=== PATIENT | male | born 1960 | race Caucasian/White ===

== ENCOUNTER 2019-09-16 00:48 | Emergency (ER) | payer OTHER ==
[2019-09-16] MEDS ORDERED: ASPIRIN 81 MG CHEWABLE TABLETS PO ONE (01:01)
--- NOTE | 2019-09-16 01:05 | PDOC ---
History of Present Illness - General Chief Complaint: Chest Pain Stated Complaint: CHEST PAIN Time Seen by Provider: 09/16/19 00:57 History Source: Patient Exam Limitations: No Limitations - History of Present Illness Initial Comments: 09/16/19 01:02 58 year Old male with history significant for hypertension, coronary artery disease, diabetes, end-stage renal disease although he will schedule this. Patient had his dialysis today. Approximately 11:00 tonight patient developed some substernal chest discomfort that was not associated with any nausea vomiting, diaphoresis or shortness of breath. Patient said he takes an aspirin a day did take his aspirin today and the pain persisted so he comes in for evaluation. Allergies: as per nursing notes Past Medical History: As per HPI Social history: Lives with family. No smoking. No alcohol. No illicit drugs. Surgical history: None General: No fevers or chills, no weakness, no weight loss HEENT: No change in vision. No sore throat,. No ear pain CardioVascular: + chest discomfort. No shortness of breath Respiratory:No cough, or wheezing. Gastrointestinal: no nausea, vomiting, diarrhea or constipation, No rectal bleeding Genitourinary: No dysuria, hematuria, or frequency Musculoskeletal: No joint or muscle pain or swelling Neurologic: No headache, vertigo, dizziness or loss of consciousness Psychiatric: nor depression Skin: No rashes or easy bruising Endocrine: no increased thirst or abnormal weight change Allergic: no skin or latex allergy All other systems reviewed and normal Exam: General: Well-nourished well-developed individual, no acute distress HEENT: Throat: Normal, tonsils normal, no erythema or exudate Neck: Supple, no meningeal signs, no lymphadenopathy Eyes::Pupils equal reactive and round, extraocular motion intact Chest: Nontender to palpation Cardiac: S1-S2 normal, regular rate and rhythm, no murmurs rubs or gallops Respiratory: Lungs clear to auscultation bilateral Abdomen: Soft, nondistended, normal bowel sounds, there is no tenderness on palpation diffusely Extremities: Warm, dry, no cyanosis, clubbing, or edema Skin: No rashes Neuro: Alert and oriented x3, CN II - XII intact, nonfocal exam with normal strength, normal sensation, normal reflexes, normal gait, Psych: Normal mood and affect Assessment and plan: This is a 58-year-old male with significant medical history and chest discomfort. Patient will need to be admitted to rule out cardiac causes given his multiple risk factors. Work-up initiated including CBC , comp, UA, chest x-ray, EKG. 09/16/19 03:07 Patient's work-up is complete his chest x-ray shows no acute pathology EKG shows a paced ventricular rhythm with a biventricular pacemaker Troponin was 0.35 Patient will be admitted for serial troponins. 09/16/19 06:57 Filemon was called at o3:00 and returned the call but wasn't retail seasonal specialist. Shoshana called at 03:30 and never returned the call. Natalia came on at 07:00 and was called 09/16/19 21:54 Past History - Past Medical History Allergies/Adverse Reactions: Allergies Allergy/AdvReac Type Severity Reaction Status Date / Time Penicillins Allergy Verified 09/16/19 00:51 Home Medications: Ambulatory Orders Aspirin [ASA -] 81 mg PO DAILY 09/16/19 Carvedilol 12.5 mg PO BID 09/16/19 Folic Acid 800 mcg PO DAILY 09/16/19 Simvastatin 40 mg PO DAILY 09/16/19 Warfarin Na [Coumadin Protocol] 1 each PO DAILY 09/16/19 *Physical Exam - Vital Signs Last Vital Signs Temp Pulse Resp BP Pulse Ox 98.2 F 84 18 150/82 97 09/16/19 06:44 09/16/19 10:00 09/16/19 10:00 09/16/19 10:00 09/16/19 10:00 ED Treatment Course - LABORATORY CBC & Chemistry Diagram: 09/16/19 01:30 09/16/19 01:30 - ADDITIONAL ORDERS Additional order review: 09/16/19 01:30 RBC 3.87 L MCV 100.4 H MCHC 34.4 RDW 14.7 MPV 8.4 Neutrophils % 64.2 Lymphocytes % 18.9 Monocytes % 10.6 H Eosinophils % 5.5 H Basophils % 0.8 - RADIOLOGY Radiology Studies Ordered: Category Date Time Status CHEST X-RAY PORTABLE* [RAD] Stat Radiology 09/16/19 00:59 Completed - Medications Given in the ED: ED Medications Discontinued Medications Generic Name Dose Route Start Last Admin Trade Name Freq PRN Reason Stop Dose Admin Aspirin 325 mg 09/16/19 01:01 09/16/19 01:08 Asa - PO 09/16/19 01:02 325 mg ONCE ONE Administration Heparin Sodium (Porcine) 4,000 unit 09/16/19 08:31 09/16/19 08:53 Heparin - IVPUSH 09/16/19 08:32 4,000 unit ONCE ONE Administration Heparin Sodium/Dextrose 25,000 units in 500 mls @ 16 mls/hr 09/16/19 08:45 08:53 Heparin Infusion - IVPB 800 units/hr TITR JAZMYNE 16 mls/hr Administration Protocol 800 UNITS/HR Discharge - Discharge Information Problems reviewed: Yes Clinical Impression/Diagnosis: Chest discomfort Condition: Fair Disposition: TRANSFER ACUTE CARE/OTHER HOSP - Admission Yes - Follow up/Referral - Patient Discharge Instructions - Post Discharge Activity
[2019-09-16 01:08] VITALS: BMI 30.1
[2019-09-16] MEDS ORDERED: ASPIRIN 325 MG TABLET ONE (01:09)
[2019-09-16 02:01] LABS: BASO % 0.8 % (0-2.0); EOS % 5.5 % (0-4.5); HEMATOCRIT 38.8 % (35.4-49); HEMOGLOBIN 13.4 GM/dL (11.7-16.9); LYMPH % 18.9 % (8-40); MCH 34.5 pg (25.7-33.7); MCHC 34.4 g/dl (32.0-35.9); MEAN CELL VOLUME 100.4 fl (80-96); MEAN PLT VOLUME 8.4 fl (7.5-11.1); MONO % 10.6 % (3.8-10.2); NEUT % 64.2 % (42.8-82.8); PLATELET COUNT 167 K/MM3 (134-434); RBC 3.87 M/mm3 (4.00-5.60); RDW 14.7 % (11.9-15.9); WHITE BLOOD COUNT 10.4 K/mm3 (4.0-10.0)
[2019-09-16 02:29] LABS: ALBUMIN 3.6 g/dl (3.4-5.0); BILIRUBIN,TOTAL 0.3 mg/dL (0.2-1); BLOOD UREA NITROGEN 34.6 mg/dL (7-18); CREATININE 6.5 mg/dL (0.55-1.3); POTASSIUM 3.6 mmol/L (3.5-5.1); TOT PROT 7.7 g/dl (6.4-8.2)
[2019-09-16 06:50] VITALS: TEMP 98.2
[2019-09-16] MEDS ORDERED: HEPARIN NA (PORCINE) 5,000 UNITS/ML 1ML VIAL IVPUSH ONE (08:31)
[2019-09-16] MEDS ORDERED: HEPARIN NA (PORCINE) 5,000 UNITS/ML 1ML VIAL IVPUSH PRN ×2 (08:31)
[2019-09-16] MEDS ORDERED: HEPARIN INFUSION - 25,000 UNITS/500 ML INFUS.BAG IVPB ONE (08:41)
[2019-09-16] MEDS ORDERED: HEPARIN NA (PORCINE) 5,000 UNITS/ML 1ML VIAL ONE (08:41)
[2019-09-16] MEDS ORDERED: HEPARIN INFUSION - 25,000 UNITS/500 ML INFUS.BAG IVPB SCH (08:45)
--- NOTE | 2019-09-16 09:34 | PDOC ---
*Physical Exam - Vital Signs Last Vital Signs Temp Pulse Resp BP Pulse Ox 98.2 F 83 14 135/84 97 09/16/19 06:44 09/16/19 06:44 09/16/19 07:20 09/16/19 06:44 09/16/19 07:20 ED Treatment Course - LABORATORY CBC & Chemistry Diagram: 09/16/19 01:30 09/16/19 01:30 - ADDITIONAL ORDERS Additional order review: Laboratory Results 09/16/19 09/16/19 07:25 01:30 Sodium 138 Potassium 3.6 Chloride 98 Carbon Dioxide 31 Anion Gap 9 BUN 34.6 H Creatinine 6.5 H Est GFR (CKD-EPI)AfAm 10.10 Est GFR (CKD-EPI)NonAf 8.71 Random Glucose 308 H Calcium 9.0 Total Bilirubin 0.3 AST 14 L ALT 27 Alkaline Phosphatase 89 Creatine Kinase 86 Troponin I 2.81 H* 0.35 H Total Protein 7.7 Albumin 3.6 09/16/19 01:30 RBC 3.87 L MCV 100.4 H MCHC 34.4 RDW 14.7 MPV 8.4 Neutrophils % 64.2 Lymphocytes % 18.9 Monocytes % 10.6 H Eosinophils % 5.5 H Basophils % 0.8 - Medications Given in the ED: ED Medications Discontinued Medications Generic Name Dose Route Start Last Admin Trade Name Freq PRN Reason Stop Dose Admin Aspirin 325 mg 09/16/19 01:01 09/16/19 01:08 Asa - PO 09/16/19 01:02 325 mg ONCE ONE Administration Heparin Sodium (Porcine) 4,000 unit 09/16/19 08:31 09/16/19 08:53 Heparin - IVPUSH 09/16/19 08:32 4,000 unit ONCE ONE Administration Medical Decision Making - Medical Decision Making 09/16/19 09:34 Patient signed out to me pending discussion with patient's primary fisher diver net Patient with multiple risk factors presented last night with chest discomfort difficult to interpret EKG given paced rhythm First troponin .35 Patient is currently chest pain-free. Second troponin ordered upon my arrival to the emergency department demonstrates an elevation second troponin returned at 2.81 Case discussed with patient's fisher diver net Dr. Wong agrees that patient may require catheterization will transfer ED to ED to [facility] for definitive management of DE Overnight patient received full dose aspirin this morning patient was given heparin bolus and placed on heparin drip Patient informed of all results emergency department at [facility] Dr. Do accepting physician At this time vital signs stable patient medically stable for transfer 09/16/19 09:44 Discharge - Discharge Information Problems reviewed: Yes Clinical Impression/Diagnosis: Chest discomfort Condition: Fair Disposition: TRANSFER ACUTE CARE/OTHER HOSP - Follow up/Referral - Patient Discharge Instructions - Post Discharge Activity
[2019-09-16 10:29] VITALS: BP 150/82; PULSE 84
--- NOTE | 2019-09-16 14:45 | EKG ---
Test Reason : Blood Pressure : / mmHG Vent. Rate : 080 BPM Atrial Rate : 080 BPM P-R Int : 148 ms QRS Dur : 170 ms QT Int : 468 ms P-R-T Axes : 027 269 079 degrees QTc Int : 539 ms Atrial-sensed ventricular-paced rhythm Biventricular pacemaker detected ABNORMAL ECG NO PREVIOUS ECGS AVAILABLE Confirmed by EVERETT NICK, DOMINIC ([id number]) on 09/16/2019 2:45:10 PM Referred By: MD WORTHY Confirmed By:DOMINIC FLOYD MD
== END 2019-09-16 10:20 | disposition short-term general hospital (02) ==
LOC: FER 00:48
PROC: 3E033GC Introduction of Other Therapeutic Substance into Peripheral Vein, Percutaneous Approach (ICD-10-PCS; principal; 2019-09-16)
DX: R07.9 Chest pain, unspecified (principal); I25.10 Atherosclerotic heart disease of native coronary artery without angina pectoris; I12.0 Hypertensive chronic kidney disease with stage 5 chronic kidney disease or end stage renal disease; E11.22 Type 2 diabetes mellitus with diabetic chronic kidney disease; N18.6 End stage renal disease; Z88.0 Allergy status to penicillin
CPT/HCPCS: 36415; 71045-TC-FY; 80053; 82550; 84484; 85025; 93005; 99285-25; J1644